=== PATIENT | male | born 1960 | race Caucasian/White ===

== ENCOUNTER 2020-03-11 23:52 | Inpatient (IN) | payer BC, MEDICAID ==
[~2020-03-11] VITALS: Ht 180.3 cm; Wt 122.3 kg
[~2020-03-11 23:52] MED LIST: BISO1TAB14; CITA20TA28 PO; OXYGEN; TRAM50TA2 PO; VOLTAREN GEL 1%
[2020-03-12] VITALS (13 sets, daily range): BP systolic 116–149; BP diastolic 65–88
[2020-03-12 00:17] LABS: BASOPHILS # (AUTO) 0.1 X10'3 (0-0.2); BASOPHILS % (AUTO) 0.8 % (0-1); EOSINOPHILS # (AUTO) 0.2 X10'3 (0-0.9); EOSINOPHILS % (AUTO) 1.4 % (0-6); HEMATOCRIT 46.3 % (42.0-52.0); HEMOGLOBIN 15.8 g/dl (14.0-17.9); LYMPHOCYTES % (AUTO) 12.7 % (21-51); MEAN CORPUSCULAR HEMOGLOBIN 33.1 PG (27.0-31.0); MEAN CORPUSCULAR HGB CONC 34.1 g/dL (33.0-36.5); MEAN CORPUSCULAR VOLUME 97.2 FL (78-98); MEAN PLATELET VOLUME 7.5 FL (7.4-10.4); MONOCYTES # (AUTO) 1.3 X10'3 (0-0.9); MONOCYTES % (AUTO) 7.9 % (2-12); NEUTROPHILS # (AUTO) 12.2 X10'3 (1.8-7.7); NEUTROPHILS % (AUTO) 77.2 % (42-75); PLATELET COUNT 233 X10'3 (140-440); RED BLOOD COUNT 4.76 X10'6 (4.70-6.10); RED CELL DISTRIBUTION WIDTH 13.6 % (11.5-14.5); WHITE BLOOD COUNT 15.8 X10'3 (4.5-11.0)
[2020-03-12 00:33] LABS: ALANINE AMINOTRANSFERASE 35 U/L (12-78); ALBUMIN 4.3 G/DL (3.4-5.0); ALBUMIN/GLOBULIN RATIO 1.2 (1.1-1.5); ALKALINE PHOSPHATASE 76 IU/L (46-116); ANION GAP 13 (8-16); ASPARTATE AMINO TRANSFERASE 18 U/L (10-37); BILIRUBIN,TOTAL 0.8 MG/DL (0.1-1.0); BLOOD UREA NITROGEN 16 MG/DL (7-18); BUN/CREATININE RATIO 13.8 (5.4-32.0); CALCIUM 9.3 MG/DL (8.5-10.1); CHLORIDE 102 MMOL/L (99-107); CREATININE 1.16 MG/DL (0.60-1.10); GLUCOSE 118 MG/DL (70-104); POTASSIUM 3.9 MMOL/L (3.5-5.1); SODIUM 137 MMOL/L (135-145); TOTAL CARBON DIOXIDE 21.8 MMOL/L (24-32); TOTAL PROTEIN 7.8 G/DL (6.4-8.2); eGFR 64 ML/MIN
[2020-03-12] MEDS ORDERED: normal saline 1000ML IV soln IVB ONE (01:05)
[2020-03-12] MEDS ORDERED: aspirin 81mg tab.chew PO ONE (01:05)
[2020-03-12] MEDS ORDERED: iohexol 350MG/ML 100ml bottle IV ONE (01:08)
[2020-03-12 01:12] LABS: ETHANOL < 0.010 GM/DL (0.0-0.010)
[2020-03-12] MEDS ORDERED: HYDR12.55 PO (01:47)
[2020-03-12 01:50] LABS: URINE AMPHETAMINE SCREEN NEGATIVE (Neg); URINE BARBITUATE SCREEN NEGATIVE (Neg); URINE BENZODIAZEPINES SCREEN NEGATIVE (Neg); URINE CANNABINOID SCREEN NEGATIVE (Neg); URINE COCAINE SCREEN NEGATIVE (Neg); URINE METHADONE SCREEN NEGATIVE (Neg); URINE OPIATE SCREEN NEGATIVE (Neg); URINE PHENCYCLIDINE SCREEN NEGATIVE (Neg)
[2020-03-12] MEDS ORDERED: FENO145T38 PO (01:53)
[2020-03-12] MEDS ORDERED: BISO10TA PO (01:53)
[2020-03-12] MEDS ORDERED: BUDE10.22 INH (01:53)
[2020-03-12] MEDS ORDERED: ALB0.5UD IH (01:53)
[2020-03-12] MEDS ORDERED: albuterol 2.5 MG/3 ML nebule NEB PRN (02:05)
[2020-03-12] MEDS ORDERED: magnesium hydroxide 30ml (MOM) UD suspension PO PRN (02:10)
[2020-03-12] MEDS ORDERED: HYDROcodone/acetaminophen 5mg/325mg tablet PO PRN (02:10)
[2020-03-12] MEDS ORDERED: HYDROcodone/acetaminophen 10/325mg tab PO PRN (02:10)
[2020-03-12] MEDS ORDERED: acetaminophen 325mg tablet PO PRN ×2 (02:10)
[2020-03-12] MEDS ORDERED: nitroGLYCERIN 0.4mg SUBLingual tab SL PRN ×2 (02:10→05:35)
[2020-03-12] MEDS ORDERED: mag hydrox/Alum hydrox/simeth 30ml oral suspension PO PRN (02:10)
[2020-03-12] MEDS ORDERED: ondansetron/PF 4mg/2ml inj IV PRN (02:10)
[2020-03-12] MEDS ORDERED: morphine 2 MG/ML inj. syringe IV PRN ×2 (02:10)
--- NOTE | 2020-03-12 04:00 | NUR ---
Patient in room PCU 3013. I have received report from SULY [facility] and had the opportunity to ask questions and assume patient care.
[2020-03-12] MEDS ORDERED: metoprolol tartrate 1mg/ml inj IV PRN (05:35)
[2020-03-12] MEDS ORDERED: regadenoson 0.4mg/5ml syringe IV PRN (05:35)
[2020-03-12] MEDS ORDERED: aminophylline 250mg/10ml inj. IV PRN (05:35)
--- NOTE | 2020-03-12 06:30 | NUR ---
Patient in room U 3013. I have received report from FELIZ TUBBS and had the opportunity to ask questions and assume patient care. PT RESTING. VERY PLEASANT. VERY ORIENTATED TO PLAN OF CARE. DENIES PAIN. Addendum: 03/12/20 at 0735 by Rachael Patel RN Amended: Links added.
--- NOTE | 2020-03-12 06:47 | NUR ---
Problems reprioritized. Patient report given, questions answered & plan of care reviewed with SULY Cano.
[2020-03-12] MEDS: albuterol 2.5 MG/3 ML nebule NEB SCH ×3 (08:00→19:12)
[2020-03-12] MEDS: budesonide 0.5mg/2ml UD nebule IH SCH ×2 (08:00→19:12)
[2020-03-12] MEDS: aspirin 81mg tablet.DR PO SCH (08:11)
[2020-03-12] MEDS: citalopram 20mg tablet PO SCH (08:11)
[2020-03-12] MEDS ORDERED: FENO160T30 PO (09:57)
[2020-03-12] MEDS: atenolol 50mg tablet PO SCH (11:51)
[2020-03-12] MEDS: HYDROchlorothiazide 12.5mg capsule PO SCH (11:52)
--- NOTE | 2020-03-12 12:09 | NUR ---
PAGER ID: [phone] MESSAGE: [id number] MIGUEL RESULTS OF SARAH ARE IN [place]. I WANT TO KNOW IF I CAN GO AHEAD AND FEED HIM LUNCH. TOMAS Enedina #[id number]
--- NOTE | 2020-03-12 12:14 | NUR ---
pt not in room for 0800 SVN
--- NOTE | 2020-03-12 18:14 | NUR ---
Problems reprioritized. Patient report given, questions answered & plan of care reviewed with TAYE TUBBS. PT EATING DINNER. NO DISTRESS. Addendum: 03/12/20 at 1815 by Rachael Patel RN Amended: Links added.
--- NOTE | 2020-03-12 18:39 | NUR ---
Patient in room PCU 3013. I have received report from Cathie TUBBS and had the opportunity to ask questions and assume patient care.
[2020-03-12 20:12] LABS: CLARITY,URINE CLEAR (Clear); COLOR,URINE YELLOW (Yellow); GLUCOSE, URINE NEGATIVE (Neg); KETONES,URINE NEGATIVE (Neg); LEUKOCYTE ESTERASE ,URINE NEGATIVE (Neg); NITRITES, URINE NEGATIVE (Neg); OCCULT BLOOD,URINE TRACE-INTACT (Neg); PROTEIN,URINE NEGATIVE (Neg); UROBILINOGEN,URINE 0.2 E.U/dL (0.2-1.0)
[2020-03-12 20:18] LABS: BACTERIA,URINE NONE SEEN /HPF (Neg); RBC,URINE 0-2 /HPF (0-2); SQUAMOUS EPITHELIAL CELL,UR FEW /LPF (FEW); UA COLLECTION TYPE VOIDED; WBC,URINE NONE SEEN /HPF (0-4)
[2020-03-13 02:00] VITALS: BP 117/71
[2020-03-13] MEDS: albuterol 2.5 MG/3 ML nebule NEB SCH ×2 (03:22→08:00)
--- NOTE | 2020-03-13 06:43 | NUR ---
Patient in room PCU 3013. I have received report from SULY Hill and had the opportunity to ask questions and assume patient care. Patient awake in bed and in no acute distress.
[2020-03-13 07:00] VITALS: BP 101/64
[2020-03-13 07:02] LABS: BASOPHILS % (AUTO) 0.2 % (0-1); EOSINOPHILS # (AUTO) 0.3 X10'3 (0-0.9); EOSINOPHILS % (AUTO) 2.7 % (0-6); HEMOGLOBIN 14.8 g/dl (14.0-17.9); LYMPHOCYTES # (AUTO) 1.3 X10'3 (1.1-4.8); LYMPHOCYTES % (AUTO) 10.8 % (21-51); MEAN CORPUSCULAR HEMOGLOBIN 32.9 PG (27.0-31.0); MEAN CORPUSCULAR HGB CONC 34.4 g/dL (33.0-36.5); MEAN CORPUSCULAR VOLUME 95.7 FL (78-98); MEAN PLATELET VOLUME 7.7 FL (7.4-10.4); MONOCYTES # (AUTO) 1.2 X10'3 (0-0.9); MONOCYTES % (AUTO) 9.8 % (2-12); NEUTROPHILS % (AUTO) 76.5 % (42-75); PLATELET COUNT 207 X10'3 (140-440); RED CELL DISTRIBUTION WIDTH 13.9 % (11.5-14.5); WHITE BLOOD COUNT 11.8 X10'3 (4.5-11.0)
--- NOTE | 2020-03-13 07:03 | NUR ---
Problems reprioritized. Patient report given, questions answered & plan of care reviewed with Mary TUBBS.
[2020-03-13 07:42] LABS: ALBUMIN 3.8 G/DL (3.4-5.0); ANION GAP 13 (8-16); BLOOD UREA NITROGEN 16 MG/DL (7-18); BUN/CREATININE RATIO 14.2 (5.4-32.0); CALCIUM 8.8 MG/DL (8.5-10.1); CHLORIDE 101 MMOL/L (99-107); CHOL/HDL RATIO 5.6 (0.00-4.99); CHOLESTEROL 178 MG/DL (0-200); CREATININE 1.13 MG/DL (0.60-1.10); GLUCOSE 109 MG/DL (70-104); HDL CHOLESTEROL 32 MG/DL (35-60); LDL CHOLESTEROL 111 MG/DL (50-100); POTASSIUM 3.5 MMOL/L (3.5-5.1); SODIUM 137 MMOL/L (135-145); TOTAL CARBON DIOXIDE 23.4 MMOL/L (24-32); TRIGLYCERIDES 293 MG/DL (20-135); eGFR 66 ML/MIN
[2020-03-13] MEDS: budesonide 0.5mg/2ml UD nebule IH SCH (08:00)
[2020-03-13] MEDS: aspirin 81mg tablet.DR PO SCH (08:14)
[2020-03-13] MEDS: HYDROchlorothiazide 12.5mg capsule PO SCH (08:14)
[2020-03-13] MEDS: citalopram 20mg tablet PO SCH (08:15)
[2020-03-13] MEDS: atenolol 50mg tablet PO SCH (08:20)
--- NOTE | 2020-03-13 08:45 | NUR ---
Pt rfused 0800 SVN...No distress observed
[2020-03-13] MEDS ORDERED: NITR0.4T51 SL (10:54)
[2020-03-13] MEDS ORDERED: ASPI-1071 PO (10:54)
[2020-03-13] MEDS ORDERED: ATOR20TA66 PO (10:54)
[2020-03-13 11:00] VITALS: BP 120/71
--- NOTE | 2020-03-13 11:48 | NUR ---
Patient stable for discharge per MD orders. All discharge instructions reviewed and questions answered appropriately. Belongings collected and sent with the patient. New prescriptions e-scripted to [facility]. Patient will make own follow up appointments. PIV discontinued and cannula intact. Patient wheeled down to lobby and left via private vehicle.
== END 2020-03-13 11:50 | disposition home or self-care (01) | DRG 392 ==
LOC: ER 23:52 → ED HOLD 03-12 02:06 → PCU 3S 03-12 03:58 → OBSVTOIN 03-12 14:30
PROVIDERS: ADMIT Internal Medicine; ATTEND Family Medicine
PROC: 4A02XM4 Measurement of Cardiac Total Activity, External Approach (ICD-10-PCS; principal; 2020-03-12)
PROC: 3E073KZ Introduction of Other Diagnostic Substance into Coronary Artery, Percutaneous Approach (ICD-10-PCS; 2020-03-12)
PROC: B32T1ZZ Computerized Tomography (CT Scan) of Left Pulmonary Artery using Low Osmolar Contrast (ICD-10-PCS; 2020-03-12)
PROC: B3201ZZ Computerized Tomography (CT Scan) of Thoracic Aorta using Low Osmolar Contrast (ICD-10-PCS; 2020-03-12)
PROC: B32S1ZZ Computerized Tomography (CT Scan) of Right Pulmonary Artery using Low Osmolar Contrast (ICD-10-PCS; 2020-03-12)
DX: K21.9 Gastro-esophageal reflux disease without esophagitis (principal); R07.89 Other chest pain; E66.9 Obesity, unspecified; E78.5 Hyperlipidemia, unspecified; F17.290 Nicotine dependence, other tobacco product, uncomplicated; F32.9 Major depressive disorder, single episode, unspecified; I10 Essential (primary) hypertension; I71.2 Thoracic aortic aneurysm, without rupture; I71.4 Abdominal aortic aneurysm, without rupture; J44.9 Chronic obstructive pulmonary disease, unspecified; G47.30 Sleep apnea, unspecified; Z68.37 Body mass index [BMI] 37.0-37.9, adult; Z83.3 Family history of diabetes mellitus; Z79.899 Other long term (current) drug therapy; Z71.6 Tobacco abuse counseling
CPT/HCPCS: 36415; 71045; 71275; 74174; 78452; 80048; 80053; 80061; 80305; 80320; 81001; 83036; 83880; 84484; 85025; 87081; 93005; 93017; 94640; 94760; 96360; 99285; A9500; G0378; J2785; J7030; J7626; Q9967

== ENCOUNTER 2021-06-11 23:11 | Inpatient (IN) | payer BC, OTHER ==
[~2021-06-11] VITALS: Ht 180.3 cm; Wt 131.5 kg
[~2021-06-11 23:11] MED LIST changes: +ALB0.5UD IH; +ASPI-1071 PO; +ATOR20TA66 PO; +BISO10TA16 PO; -BISO1TAB14; +BUDE10.22 INH; +FENO160T30 PO; +HYDR12.55 PO; +NITR0.4T51 SL; -OXYGEN; -TRAM50TA2 PO
[2021-06-12] VITALS (10 sets, daily range): BP systolic 101–142; BP diastolic 49–82
[2021-06-12 00:05] LABS: HEMOGLOBIN 15.6 g/dl (14.0-17.9); MEAN CORPUSCULAR HGB CONC 34.6 g/dL (33.0-36.5)
[2021-06-12 00:07] LABS: BASOPHILS # (AUTO) 0.1 X10'3 (0-0.2); BASOPHILS % (AUTO) 0.8 % (0-1); EOSINOPHILS # (AUTO) 0.9 X10'3 (0-0.9); EOSINOPHILS % (AUTO) 8.1 % (0-6); HEMATOCRIT 45.1 % (42.0-52.0); LYMPHOCYTES # (AUTO) 1.9 X10'3 (1.1-4.8); LYMPHOCYTES % (AUTO) 17.4 % (21-51); MEAN CORPUSCULAR VOLUME 92.5 FL (78-98); MONOCYTES # (AUTO) 1.1 X10'3 (0-0.9); MONOCYTES % (AUTO) 10.7 % (2-12); NEUTROPHILS # (AUTO) 6.7 X10'3 (1.8-7.7); PLATELET COUNT 250 X10'3 (140-440); RED BLOOD COUNT 4.88 X10'6 (4.70-6.10); RED CELL DISTRIBUTION WIDTH 13.8 % (11.5-14.5); WHITE BLOOD COUNT 10.6 X10'3 (4.5-11.0)
[2021-06-12 00:12] LABS: ALANINE AMINOTRANSFERASE 48 U/L (12-78); ALBUMIN 3.8 G/DL (3.4-5.0); ALBUMIN/GLOBULIN RATIO 1.2 (1.1-1.5); ALKALINE PHOSPHATASE 64 IU/L (46-116); ASPARTATE AMINO TRANSFERASE 22 U/L (10-37); BILIRUBIN,TOTAL 0.8 MG/DL (0.1-1.0); BLOOD UREA NITROGEN 15 MG/DL (7-18); BUN/CREATININE RATIO 13.6 (5.4-32.0); CALCIUM 8.3 MG/DL (8.5-10.1); GLUCOSE 209 MG/DL (70-104); POTASSIUM 4.3 MMOL/L (3.5-5.1); TOTAL CARBON DIOXIDE 16.5 MMOL/L (24-32); eGFR 68 ML/MIN
--- NOTE | 2021-06-12 00:30 | NUR ---
Patient took 3 nitro before coming to ER. After 3rd nitro, at approx 2245, pain was 6/10.
[2021-06-12] MEDS ORDERED: iohexol 350MG/ML 100ml bottle IV ONE (02:01)
[2021-06-12 03:03] LABS: LACTATE DEHYDROGENASE 169 U/L (85-227)
[2021-06-12] MEDS ORDERED: normal saline 1000ml 1,000 ML IV ONE (05:20)
[2021-06-12] MEDS ORDERED: ATOR20TA PO (07:09)
[2021-06-12] MEDS ORDERED: NITR0.4T48 SL (07:09)
[2021-06-12] MEDS ORDERED: ASPI81TA47 PO (07:09)
[2021-06-12] MEDS ORDERED: potassium Cl 20 mEq SR tablet PO PRN ×2 (07:45)
[2021-06-12] MEDS ORDERED: magnesium 2GM in 50ml NS 50 ML IV PRN (07:45)
[2021-06-12] MEDS ORDERED: magnesium hydroxide 30ml (MOM) UD suspension PO PRN (07:45)
[2021-06-12] MEDS ORDERED: potassium CL 10mEq/100ml bag 100 ML IV PRN (07:45)
[2021-06-12] MEDS ORDERED: mag hydrox/Alum hydrox/simeth 30ml oral suspension PO PRN (07:45)
[2021-06-12] MEDS ORDERED: acetaminophen 325mg tablet PO PRN ×2 (07:45)
[2021-06-12] MEDS ORDERED: regadenoson 0.4mg/5ml syringe IV PRN (07:45)
[2021-06-12] MEDS ORDERED: magnesium 4gm in 100ml NS 100 ML IV PRN (07:45)
[2021-06-12] MEDS ORDERED: ondansetron/PF 4mg/2ml inj IV PRN (07:45)
[2021-06-12] MEDS ORDERED: magnesium Cl slow-release 64mg tablet PO PRN (07:45)
[2021-06-12] MEDS ORDERED: PERFLUTREN PROTEIN-A MICROSPHR (Optison) 0.22 MG/ML 3ML VIAL IV ONE (07:45)
[2021-06-12] MEDS ORDERED: aminophylline 250mg/10ml inj. IV PRN (07:45)
[2021-06-12] MEDS ORDERED: nitroGLYCERIN 0.4mg SUBLingual tab SL PRN ×2 (07:45→09:05)
[2021-06-12] MEDS ORDERED: metoprolol tartrate 1mg/ml inj IV PRN (07:45)
[2021-06-12] MEDS: K and/or MAG REPLACEMENT MC SCH ×2 (08:00→19:43)
[2021-06-12] MEDS ORDERED: albuterol 2.5 MG/3 ML nebule NEB PRN (09:05)
--- NOTE | 2021-06-12 09:12 | NUR ---
Patient in room ED 6. I have received report from SULY Love and had the opportunity to ask questions and assume patient care.
--- NOTE | 2021-06-12 10:23 | NUR ---
Paged hospitalist: PAGER ID: [phone] MESSAGE: Room: 3025A: Nadja: Pt has just arrived to the unit. I am getting them settled right now. Do you want an AM set of CBC and CMP labs? Also, can this pt have a diet? Brielle, RN [phone]
[2021-06-12] MEDS: normal saline 1000ml 1,000 ML IV SCH ×2 (10:36→22:03)
[2021-06-12] MEDS: atorvastatin 20mg tablet PO SCH (10:37)
[2021-06-12] MEDS: heparin, porcine 5000 units/ml vial SQ SCH ×2 (10:37→19:43)
[2021-06-12] MEDS: aspirin 81mg, enteric-coated 1 TAB TABLET.DR PO SCH (10:37)
[2021-06-12] MEDS: atenolol 50mg tablet PO SCH (10:38)
[2021-06-12] MEDS: HYDROchlorothiazide 12.5mg capsule PO SCH (10:38)
[2021-06-12] MEDS: citalopram 20mg tablet PO SCH (10:38)
[2021-06-12] MEDS: fenofibrate 145mg tablet PO SCH (10:39)
--- NOTE | 2021-06-12 11:29 | NUR ---
PAGER ID: [phone] MESSAGE: Room: 5876F: Nadja: Can this pt have a diet order? Would you like AM labs drawn? No labs were drawn this AM. SULY Hannah [id number]
--- NOTE | 2021-06-12 11:50 | NUR ---
PAGER ID: [phone] MESSAGE: Room: 8795U: Nadja: Can this pt have a diet order? Would you like AM labs drawn? No labs were drawn this AM. SULY Hannah [id number]
--- NOTE | 2021-06-12 15:01 | NUR ---
PAGER ID: [phone] MESSAGE: Room: 3855A: Nadja: Echocardiogram has just been completed. Report is not complete, yet. SULY Hannah [id number]
[2021-06-12] MEDS: albuterol 2.5 MG/3 ML nebule NEB SCH ×2 (15:37→19:04)
--- NOTE | 2021-06-12 18:14 | NUR ---
Problems reprioritized. Patient report given, questions answered & plan of care reviewed with SULY Rocha.
--- NOTE | 2021-06-12 18:25 | NUR ---
Patient in room PCU 3025. I have received report from Brielle TUBBS and had the opportunity to ask questions and assume patient care.
[2021-06-12] MEDS: budesonide 0.5mg/2ml UD nebule IH SCH (19:04)
[2021-06-12] MEDS ORDERED: non-formulary drug (Budesonide/Formoterol Fumarate (Symbicort 80-4.5 Mcg Inhaler) 2 PUFFS) INH SCH (20:00)
[2021-06-13] MEDS: normal saline 1000ml 1,000 ML IV SCH (01:05)
[2021-06-13] MEDS ORDERED: dextrose 5%-water 1,000 ML IV SCH (02:25)
[2021-06-13] MEDS: albuterol 2.5 MG/3 ML nebule NEB SCH ×2 (02:49→07:40)
[2021-06-13 06:00] VITALS: BP 128/88
--- NOTE | 2021-06-13 06:24 | NUR ---
Problems reprioritized. Patient report given, questions answered & plan of care reviewed with Brielle RN.
--- NOTE | 2021-06-13 06:30 | NUR ---
Patient in room PCU 3025. I have received report from SULY Rocha and had the opportunity to ask questions and assume patient care.
[2021-06-13 06:45] LABS: BASOPHILS # (AUTO) 0.1 X10'3 (0-0.2); BASOPHILS % (AUTO) 0.6 % (0-1); EOSINOPHILS # (AUTO) 0.8 X10'3 (0-0.9); EOSINOPHILS % (AUTO) 8.8 % (0-6); HEMATOCRIT 42.8 % (42.0-52.0); HEMOGLOBIN 14.8 g/dl (14.0-17.9); LYMPHOCYTES # (AUTO) 2.1 X10'3 (1.1-4.8); MEAN CORPUSCULAR HEMOGLOBIN 31.8 PG (27.0-31.0); MEAN CORPUSCULAR HGB CONC 34.5 g/dL (33.0-36.5); MEAN CORPUSCULAR VOLUME 92.1 FL (78-98); MEAN PLATELET VOLUME 7.9 FL (7.4-10.4); MONOCYTES # (AUTO) 0.8 X10'3 (0-0.9); MONOCYTES % (AUTO) 8.7 % (2-12); NEUTROPHILS # (AUTO) 5.8 X10'3 (1.8-7.7); NEUTROPHILS % (AUTO) 59.9 % (42-75); PLATELET COUNT 205 X10'3 (140-440); RED BLOOD COUNT 4.65 X10'6 (4.70-6.10); RED CELL DISTRIBUTION WIDTH 13.5 % (11.5-14.5); WHITE BLOOD COUNT 9.6 X10'3 (4.5-11.0)
[2021-06-13 07:00] LABS: ALANINE AMINOTRANSFERASE 46 U/L (12-78); ALBUMIN 3.4 G/DL (3.4-5.0); ALBUMIN/GLOBULIN RATIO 1.2 (1.1-1.5); ALKALINE PHOSPHATASE 60 IU/L (46-116); ANION GAP 13 (8-16); ASPARTATE AMINO TRANSFERASE 21 U/L (10-37); BILIRUBIN,TOTAL 0.9 MG/DL (0.1-1.0); BLOOD UREA NITROGEN 12 MG/DL (7-18); CALCIUM 8.5 MG/DL (8.5-10.1); CHLORIDE 106 MMOL/L (99-107); CHOL/HDL RATIO 5.3 (0.00-4.99); CHOLESTEROL 139 MG/DL (0-200); GLUCOSE 104 MG/DL (70-104); HDL CHOLESTEROL 26 MG/DL (35-60); LDL CHOLESTEROL 86 MG/DL (50-100); POTASSIUM 3.7 MMOL/L (3.5-5.1); SODIUM 141 MMOL/L (135-145); TOTAL CARBON DIOXIDE 22.3 MMOL/L (24-32); TOTAL PROTEIN 6.2 G/DL (6.4-8.2); TRIGLYCERIDES 246 MG/DL (20-135); eGFR 76 ML/MIN
[2021-06-13 07:37] LABS: ANION GAP 19 (8-16)
[2021-06-13 07:38] LABS: CHLORIDE 104 MMOL/L (99-107); SODIUM 139 MMOL/L (135-145)
[2021-06-13] MEDS: budesonide 0.5mg/2ml UD nebule IH SCH (07:41)
[2021-06-13] MEDS: aspirin 81mg, enteric-coated 1 TAB TABLET.DR PO SCH (08:00)
[2021-06-13] MEDS: K and/or MAG REPLACEMENT MC SCH (08:00)
[2021-06-13] MEDS: citalopram 20mg tablet PO SCH (08:00)
[2021-06-13] MEDS: HYDROchlorothiazide 12.5mg capsule PO SCH (08:00)
[2021-06-13] MEDS: heparin, porcine 5000 units/ml vial SQ SCH (08:00)
[2021-06-13] MEDS: fenofibrate 145mg tablet PO SCH (08:00)
[2021-06-13] MEDS: atenolol 50mg tablet PO SCH (08:00)
[2021-06-13] MEDS: atorvastatin 20mg tablet PO SCH (08:00)
[2021-06-13 11:00] VITALS: BP 125/66
[2021-06-13] MEDS ORDERED: PANT40TA54 PO (12:56)
[2021-06-13 15:00] VITALS: BP 140/82
--- NOTE | 2021-06-13 15:26 | NUR ---
Pt discharged to home from the hospital. All discharge paperwork reviewed and signed with the assistance of this flex o writer operator. All questions were answered prior to signing. Belongings were returned. PIV removed. Medications sent to the pt's preferred pharmacy.
== END 2021-06-13 15:26 | disposition home or self-care (01) | DRG 392 ==
LOC: ER 23:12 → ED HOLD 06-12 07:47 → EDBEDREQ 06-12 08:15 → PCU 3S 06-12 10:07
PROVIDERS: ADMIT Internal Medicine; ATTEND Internal Medicine
PROC: 4A02XM4 Measurement of Cardiac Total Activity, External Approach (ICD-10-PCS; principal; 2021-06-12)
PROC: 3E033HZ Introduction of Radioactive Substance into Peripheral Vein, Percutaneous Approach (ICD-10-PCS; 2021-06-12)
PROC: B32T1ZZ Computerized Tomography (CT Scan) of Left Pulmonary Artery using Low Osmolar Contrast (ICD-10-PCS; 2021-06-12)
PROC: B3201ZZ Computerized Tomography (CT Scan) of Thoracic Aorta using Low Osmolar Contrast (ICD-10-PCS; 2021-06-12)
PROC: B32S1ZZ Computerized Tomography (CT Scan) of Right Pulmonary Artery using Low Osmolar Contrast (ICD-10-PCS; 2021-06-12)
PROC: B4201ZZ Computerized Tomography (CT Scan) of Abdominal Aorta using Low Osmolar Contrast (ICD-10-PCS; 2021-06-12)
DX: K21.9 Gastro-esophageal reflux disease without esophagitis (principal); E87.0 Hyperosmolality and hypernatremia; Z68.41 Body mass index [BMI] 40.0-44.9, adult; E87.2 Acidosis; N18.9 Chronic kidney disease, unspecified; I12.9 Hypertensive chronic kidney disease with stage 1 through stage 4 chronic kidney disease, or unspecified chronic kidney disease; I71.2 Thoracic aortic aneurysm, without rupture; J44.9 Chronic obstructive pulmonary disease, unspecified; Z87.891 Personal history of nicotine dependence; Z88.5 Allergy status to narcotic agent; I20.9 Angina pectoris, unspecified; E66.9 Obesity, unspecified
CPT/HCPCS: 36415; 71045; 71275; 74174; 78452; 80053; 80061; 83615; 83880; 84484; 85025; 87081; 93005; 93017; 93306; 94640; 94760; 97161; 97530; 99285; A9500; G0378; J1644; J7030; J7070; Q9967

== ENCOUNTER 2022-01-16 09:27 | Emergency (ER) | payer OTHER ==
[~2022-01-16] VITALS: Ht 180.3 cm; Wt 127.9 kg
[~2022-01-16 09:27] MED LIST changes: -ASPI-1071 PO; +ASPI81TA47 PO; +ATOR20TA PO; -ATOR20TA66 PO; +NITR0.4T48 SL; -NITR0.4T51 SL; +PANT40TA54 PO; -VOLTAREN GEL 1%
[2022-01-16 09:44] VITALS: BP 143/84
[2022-01-16 17:28] LABS: BASOPHILS # (AUTO) 0.2 X10'3 (0-0.2); BASOPHILS % (AUTO) 1.1 % (0-1); EOSINOPHILS # (AUTO) 0.8 X10'3 (0-0.9); EOSINOPHILS % (AUTO) 5.5 % (0-6); HEMATOCRIT 46.8 % (42.0-52.0); HEMOGLOBIN 16.2 g/dl (14.0-17.9); LYMPHOCYTES # (AUTO) 2.1 X10'3 (1.1-4.8); LYMPHOCYTES % (AUTO) 14.9 % (21-51); MEAN CORPUSCULAR HEMOGLOBIN 32.3 PG (27.0-31.0); MEAN CORPUSCULAR HGB CONC 34.7 g/dL (33.0-36.5); MEAN CORPUSCULAR VOLUME 93.2 FL (78-98); MEAN PLATELET VOLUME 7.3 FL (7.4-10.4); MONOCYTES # (AUTO) 1.2 X10'3 (0-0.9); MONOCYTES % (AUTO) 8.1 % (2-12); NEUTROPHILS % (AUTO) 70.4 % (42-75); PLATELET COUNT 240 X10'3 (140-440); RED BLOOD COUNT 5.01 X10'6 (4.70-6.10); RED CELL DISTRIBUTION WIDTH 13.7 % (11.5-14.5); WHITE BLOOD COUNT 14.2 X10'3 (4.5-11.0)
[2022-01-16 18:01] LABS: ALANINE AMINOTRANSFERASE 39 U/L (12-78); ALBUMIN 3.9 G/DL (3.4-5.0); ALBUMIN/GLOBULIN RATIO 1.1 (1.1-1.5); ALKALINE PHOSPHATASE 72 IU/L (46-116); ANION GAP 10 (8-16); ASPARTATE AMINO TRANSFERASE 20 U/L (10-37); BILIRUBIN,TOTAL 0.9 MG/DL (0.1-1.0); BLOOD UREA NITROGEN 17 MG/DL (7-18); BUN/CREATININE RATIO 15.7 (5.4-32.0); CALCIUM 9.2 MG/DL (8.5-10.1); CHLORIDE 104 MMOL/L (99-107); CREATININE 1.08 MG/DL (0.60-1.10); GLUCOSE 113 MG/DL (70-104); POTASSIUM 4.1 MMOL/L (3.5-5.1); SODIUM 138 MMOL/L (135-145); TOTAL PROTEIN 7.5 G/DL (6.4-8.2); eGFR 70 ML/MIN
[2022-01-16] MEDS ORDERED: dexamethasone sod phosphate 10mg/ml inj PO STA (18:26)
[2022-01-16] MEDS ORDERED: DOXYCYCLINE 100MG CAPSULE PO STA (18:26)
[2022-01-16] MEDS ORDERED: PRED20TA PO (18:30)
[2022-01-16] MEDS ORDERED: DOXY-411 PO (18:30)
== END 2022-01-16 18:48 | disposition home or self-care (01) ==
LOC: ER 09:27
DX: U07.1 COVID-19 (principal); J12.82 Pneumonia due to coronavirus disease 2019; J45.901 Unspecified asthma with (acute) exacerbation; I10 Essential (primary) hypertension; Z88.5 Allergy status to narcotic agent; Z79.899 Other long term (current) drug therapy; Z79.82 Long term (current) use of aspirin; Z79.1 Long term (current) use of non-steroidal anti-inflammatories (NSAID)
CPT/HCPCS: 36415; 71045; 71250; 80053; 83605; 83880; 85025; 87040; 93005; 99285; J1100